=== PATIENT | male | born 1995 | race Caucasian/White ===

== ENCOUNTER 2016-09-30 08:32 | Emergency (ER) | payer OTHER ==
[~2016-09-30] VITALS: Ht 165.1 cm; Wt 81.2 kg
[2016-09-30] MEDS ORDERED: MOBIC15 MG PO (10:09)
[2016-09-30 10:28] VITALS: BP 119/71
== END 2016-09-30 10:28 | disposition home or self-care (01) ==
LOC: ER 08:32
DX: S61.412A Laceration without foreign body of left hand, initial encounter (principal); W27.8XXA Contact with other nonpowered hand tool, initial encounter; Y93.89 Activity, other specified; Y92.89 Other specified places as the place of occurrence of the external cause; Y99.8 Other external cause status